=== PATIENT | female | born 1980 | race African-American/Black ===

== ENCOUNTER 2017-08-12 10:34 | Emergency (ER) | payer SELFPAY ==
[2017-08-12 12:17] LABS: Bilirubin Negative (Negative); Blood, Urine Large (Negative); Clarity Clear (Clear); Glucose, Urine (Dipstick) Negative (Negative); Leukocyte Negative (Negative); Nitrite Negative (Negative); Protein, Urine (Dipstick) Negative (Neg-Trace); Urobilinogen 0.2 mg/dL (0.2-1.0)
[2017-08-12 12:19] LABS: Bacteria/HPF Rare-Few HPF (None Seen); WBC/HPF 0-3 HPF (0-3)
[2017-08-12 12:19] LABS: Pregnancy Test - Urine (BHCG) Negative (Negative)
[2017-08-12 12:20] LABS: Pregu Control Background? CLEAR/WHITE (CLR/WHITE); Pregu Control Bar Appear? YES (CONTROL BAR)
--- NOTE | 2017-08-12 12:56 | RAD ---
AP VIEW CHEST: SUPINE AND UPRIGHT VIEWS ABDOMEN: 08/12/2017 HISTORY: Abdominal pain. FINDINGS: CHEST: AP view chest is unremarkable with no evidence of acute intrathoracic abnormalities. ABDOMEN: Two views of the abdomen demonstrate the abdominal gas pattern to be nonspecific. No evide nce of obstruction or ileus seen. No dilated loops of bowel seen. No evidence of free intraperitone al air seen. A moderate amount of stool is seen in the colon. IMPRESSION: Moderate amount of stool in the colon. No evidence of bowel obstruction or ileus seen. POS: [facility]
== END 2017-08-12 13:22 | disposition left against medical advice (07) ==
LOC: MADERS 10:34
DX: K59.00 Constipation, unspecified (principal); F17.210 Nicotine dependence, cigarettes, uncomplicated; Z79.899 Other long term (current) drug therapy
CPT/HCPCS: 74022; 81003; 81015; 81025